=== PATIENT | male | born 1990 | race Hispanic/Latino ===

== ENCOUNTER 2024-05-28 21:32 | Emergency (ER) | payer SELFPAY ==
[~2024-05-28] VITALS: Ht 193 cm; Wt 131.5 kg
[2024-05-28 23:18] VITALS: PULSE 82; RESP 18; TEMP 98.6; O2SAT 99
[2024-05-29] MEDS: BUPIVACAINE HCL 0.25% 10ML MPF VIAL INJ ONE (02:33)
[2024-05-29] MEDS: BACITRACIN ZINC 0.9GM TP ONE (02:36)
[2024-05-29] MEDS ORDERED: CEPHALEXIN500 MG PO (02:39)
== END 2024-05-29 02:50 | disposition home or self-care (01) ==
LOC: ER 21:54
DX: S91.114A Laceration without foreign body of right lesser toe(s) without damage to nail, initial encounter (principal); W25.XXXA Contact with sharp glass, initial encounter; Y93.01 Activity, walking, marching and hiking; Y92.89 Other specified places as the place of occurrence of the external cause
CPT/HCPCS: 99283

== ENCOUNTER 2024-11-13 20:59 | Emergency (ER) | payer SELFPAY ==
[~2024-11-13] VITALS: Ht 193 cm; Wt 131.5 kg
[~2024-11-13 20:59] MED LIST: CEPHALEXIN500 MG PO
[2024-11-13 21:09] VITALS: PULSE 99; RESP 19; TEMP 98.5; O2SAT 100
[2024-11-13] MEDS ORDERED: CORTISPORIN-TC10 M1 RIGHT EAR (21:15)
== END 2024-11-13 21:19 | disposition home or self-care (01) ==
LOC: ER 21:16
DX: H60.91 Unspecified otitis externa, right ear (principal)
CPT/HCPCS: 99283